=== PATIENT | male | born 1990 | race African-American/Black ===

== ENCOUNTER 2019-10-08 19:26 | Emergency (ER) | payer SELFPAY ==
[~2019-10-08] VITALS: Ht 193 cm; Wt 84.0 kg
[2019-10-08] MEDS ORDERED: IBUPROFEN 600MG TABLET PO STA (20:34)
[2019-10-08 20:42] LABS: EOSINOPHILS % 2.3 % (0.0-5.0); HEMATOCRIT. 42.8 % (42.0-52.0); LYMPHOCYTES % 39.3 % (20.0-50.0); MEAN CORPUSCULAR VOLUME 88.8 fL (80.0-94.0); MEAN PLATELET VOLUME 7.9 fl (7.4-10.4); MONOCYTES % 5.3 % (2.0-8.0); NEUTROPHILS % 52.1 % (40.0-76.0); PLATELET 399 x1000/uL (130-400); RED BLOOD CELL COUNT 4.82 mill/uL (4.7-6.1); RED CELL DISTRIBUTION WIDTH 14.1 % (11.6-14.6)
[2019-10-08 20:48] VITALS: BP 130/80
[2019-10-08 20:50] LABS: CHLORIDE 107 mEq/L (98-107)
[2019-10-08 20:51] LABS: COLOR URINE YELLOW (YELLOW); KETONES URINE NEGATIVE (NEGATIVE); LEUKOCYTE ESTERASE URINE TRACE (NEGATIVE); NITRITE URINE NEGATIVE (NEGATIVE); OCCULT BLOOD URINE NEGATIVE (NEGATIVE); PH URINE 6.5 (4.5-8.0); PROTEIN URINE NEGATIVE (NEGATIVE); SPECIFIC GRAVITY URINE 1.014 (1.005-1.030)
[2019-10-08 20:55] LABS: ETHANOL BLOOD 48 mg/dL
[2019-10-08 20:57] LABS: CLARITY URINE CLEAR (CLEAR)
[2019-10-08 21:04] LABS: OPIATES URINE SCREEN NEGATIVE (NEGATIVE)
[2019-10-08 21:05] LABS: *AMPHETAMINES SCREEN URINE PRESUMTIVE POSITIVE (NEGATIVE); *BARBITURATES SCREEN URINE NEGATIVE (NEGATIVE); *BENZODIAZEPINES SCREEN URINE NEGATIVE (NEGATIVE); *COCAINE SCREEN URINE NEGATIVE (NEGATIVE); CANNABINOID URINE SCREEN PRESUMTIVE POSITIVE (NEGATIVE); METHADONE URINE SCREEN NEGATIVE (NEGATIVE); PHENCYCLIDINE URINE SCREEN PRESUMTIVE POSITIVE (NEGATIVE)
== END 2019-10-08 22:09 | disposition home or self-care (01) ==
LOC: ER 19:36
DX: N30.00 Acute cystitis without hematuria (principal); T51.0X1A Toxic effect of ethanol, accidental (unintentional), initial encounter; T40.991A Poisoning by other psychodysleptics [hallucinogens], accidental (unintentional), initial encounter; T43.621A Poisoning by amphetamines, accidental (unintentional), initial encounter; R53.1 Weakness; R42 Dizziness and giddiness; F15.188 Other stimulant abuse with other stimulant-induced disorder; F10.129 Alcohol abuse with intoxication, unspecified; Y90.2 Blood alcohol level of 40-59 mg/100 ml; I10 Essential (primary) hypertension; E11.9 Type 2 diabetes mellitus without complications; F16.188 Hallucinogen abuse with other hallucinogen-induced disorder; F12.10 Cannabis abuse, uncomplicated; Y92.89 Other specified places as the place of occurrence of the external cause
CPT/HCPCS: 36415; 80053; 80305; 80320; 81003; 85025; 93005; 99284; G0480